=== PATIENT | male | born 1995 | race Caucasian/White ===

== ENCOUNTER 2016-07-05 20:10 | Emergency (ER) | payer OTHER ==
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
[2016-07-05 20:23] VITALS: BP 154/80; PULSE 110; RESP 20; TEMP 98.4; O2SAT 99
== END 2016-07-05 20:29 | disposition home or self-care (01) ==
LOC: EDUNIT#
DX: S00.93XA Contusion of unspecified part of head, initial encounter (principal); Z87.891 Personal history of nicotine dependence; W22.8XXA Striking against or struck by other objects, initial encounter; Y93.89 Activity, other specified

== ENCOUNTER 2016-12-01 22:20 | Emergency (ER) | payer OTHER ==
[2016-12-01 22:46] LABS: % IMMATURE GRANULYOCYTES 0.3 % (0.0-1.1); ABSOLUTE IMMATURE GRANULOCYTES 0.03 10^3/uL (0.00-0.10); ADD DIFF? NO; ADD MORPH? NO; ADD SCAN? NO; ATYPICAL LYMPHOCYTE FLAG 10 (0-99); FRAGMENT RBC FLAG 10 (0-99); HEMATOCRIT 43.3 % (40.0-51.0); HEMOGLOBIN 15.1 g/dL (13.7-17.5); LEFT SHIFT FLG 0 (0-99); LIPEMIA HEMOLYSIS FLAG 90 (0-99); MEAN CELL HEMOGLOBIN 30.7 pg (27.9-34.1); MEAN CELL HEMOGLOBIN CONCENTR. 34.9 g/dL (32.4-36.7); MEAN PLATELET VOLUME 9.6 fL (8.7-11.7); PLATELET CLUMPS FLAG 30 (0-99); PLATELET COUNT 286 10^3/uL (150-400); RED BLOOD CELL COUNT 4.92 10^6/uL (4.40-6.38); RED CELL DISTRIBUTION WIDTH 12.6 % (11.5-15.2)
[2016-12-01 22:55] LABS: ANION GAP 15 mEq/L (8-16); CARBON DIOXIDE 22 mEq/l (22-31); CHLORIDE 103 mEq/L (97-110); ETHANOL SERUM 122 mg/dL (0-10); GLOMERULAR FILTRATION RATE > 60; GLUCOSE 89 mg/dL (70-100); POTASSIUM 3.5 mEq/L (3.5-5.2); SODIUM 140 mEq/L (134-144)
[2016-12-01] MEDS ORDERED: LORazepam 0.5 MG TAB ONE (23:13)
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
[2016-12-01] MEDS ORDERED: LORazepam 0.5 MG TAB PO ONE (23:25)
[2016-12-02] MEDS ORDERED: GABAPENTIN 100 MG CAP PO ONE (08:44)
[2016-12-02] MEDS ORDERED: OLANZapine 5 MG TAB PO ONE (08:44)
[2016-12-02] MEDS ORDERED: clonazePAM 0.5 MG TAB PO ONE (08:45)
[2016-12-02 08:52] VITALS: RESP 16
[2016-12-02] MEDS ORDERED: NICOTINE POLACRILEX 2 MG GUM B PRN (09:14)
[2016-12-02 12:28] VITALS: BP 134/77; PULSE 95; TEMP 97.2; O2SAT 95
== END 2016-12-02 12:54 ==
LOC: EDUNIT#
DX: R45.851 Suicidal ideations (principal); F31.60 Bipolar disorder, current episode mixed, unspecified; Z87.891 Personal history of nicotine dependence
CPT/HCPCS: 80305; G0480